=== PATIENT | female | born 1975 | race American Indian/Alaskan Native ===

== ENCOUNTER 2017-04-16 12:19 | Outpatient (CLI) | payer OTHER ==
--- NOTE | 2017-04-16 13:17 | XRay Report ---
CHEST 2 VIEWS INDICATION: Family history of malignant neoplasm of other respiratory. COMPARISON: None similar. FINDINGS: PA and lateral chest radiographs demonstrate normal cardiomediastinal silhouette. Clear lungs. Minimal mid to lower thoracic degenerative spurring. Some extrinsic artifacts. CONCLUSION: No acute chest process, as described. Thank you for the opportunity to participate in this patient's care.
== END 2017-04-16 12:20 | disposition home or self-care (01) ==
LOC: XRAY 12:19
PROVIDERS: ATTEND Internal Medicine
DX: Z12.2 Encounter for screening for malignant neoplasm of respiratory organs (principal); M53.84 Other specified dorsopathies, thoracic region; Z87.891 Personal history of nicotine dependence; Z80.2 Family history of malignant neoplasm of other respiratory and intrathoracic organs
CPT/HCPCS: 71020

== ENCOUNTER 2017-04-23 09:47 | Outpatient (CLI) | payer OTHER ==
--- NOTE | 2017-04-23 11:35 | Mammography Report ---
BILATERAL DIGITAL SCREENING MAMMOGRAM with CAD : 04/23/17 09:47:00 CLINICAL: Routine screening.Status post 2 left benign ultrasound guided needle biopsies 03/08/16. COMPARISON:02/26/16 FINDINGS: The breasts are heterogeneously dense, which may obscure small masses.Stable bilateral low density circumscribed nodules. 2 left periareolar biopsy clips. No new mass, architectural distortion or suspicious calcifications. IMPRESSION: No mammographic evidence of malignancy. BI-RADS CATEGORY: 2 -- Benign RECOMMENDATION: Routine mammographic screening in one year. COMMENT: Patient follow-up letters are generated by our [employer] application.
== END 2017-04-23 09:48 | disposition home or self-care (01) ==
LOC: SPVWC 09:47
PROVIDERS: ATTEND Internal Medicine
DX: Z12.31 Encounter for screening mammogram for malignant neoplasm of breast (principal)
CPT/HCPCS: 77067; G0202

== ENCOUNTER 2017-07-01 20:01 | Emergency (ER) | payer OTHER ==
[2017-07-01] MEDS ORDERED: ASPIRIN PO ONE (20:25)
[2017-07-01 20:28] VITALS: BP 131/83
== END 2017-07-01 20:22 | disposition left against medical advice (07) ==
LOC: ED 20:01
DX: R07.9 Chest pain, unspecified (principal); Z53.21 Procedure and treatment not carried out due to patient leaving prior to being seen by health care provider
CPT/HCPCS: 93005; 93010

== ENCOUNTER 2018-07-29 14:54 | Outpatient (CLI) | payer OTHER ==
--- NOTE | 2018-07-29 15:37 | Mammography Report ---
Screening mammogram: Routine views demonstrate an intermediate fibroglandular density pattern in a symmetric distribution. Several small circumscribed nodules are identified bilaterally. There are 2 biopsy markers in the superior left anterior breast. The breast pattern is not otherwise remarkable. The findings are unchanged compared to prior exam in April 2017. CAD used. Impression: Stable exam. No suspicious findings. Recommendation: Annual mammogram followup. BI-RADS CATEGORY: 2 = Benign ACR BI-RADS MAMMOGRAPHIC CODES: 0 = Needs additional imaging evaluation; 1 = Negative; 2 = Benign; 3 = Probably benign; 4 = Suspicious; 5 = Malignant; 6 = Known biopsy-proven malignancy COMMENT: 1. Dense breast tissue, i.e., adenosis, fibrocystic changes, etc., may obscure an underlying neoplasm. 2. Approximately 10% of cancers are not detected with mammography. 3. A negative mammography report should not delay biopsy if a clinically suspicious mass is present.
== END 2018-07-29 14:55 | disposition home or self-care (01) ==
LOC: SPVWC 14:54
PROVIDERS: ATTEND Internal Medicine
DX: Z12.31 Encounter for screening mammogram for malignant neoplasm of breast (principal)
CPT/HCPCS: 77067